=== PATIENT | male | born 1980 | race Hispanic/Latino ===

== ENCOUNTER 2022-08-18 23:44 | Inpatient (IN) | payer OTHER ==
[~2022-08-18] VITALS: Ht 165.1 cm; Wt 69.3 kg
[2022-08-18] MEDS ORDERED: LORAZEPAM 2 MG/ML 1 ML VIAL ONE (23:54)
[2022-08-19] MEDS ORDERED: LORAZEPAM 2 MG/ML 1 ML VIAL IVP ONE
[2022-08-19] MEDS ORDERED: LACTATED RINGERS 1000ML 1,000 ML IV ONE
[2022-08-19 00:12] LABS: APPEARANCE,URINE CLEAR (CLEAR); BILIRUBIN,URINE NEGATIVE (NEGATIVE); COLOR,URINE COLORLESS (YELLOW); GLUCOSE, URINE (UA) NEGATIVE (NEGATIVE); KETONES,URINE NEGATIVE (NEGATIVE); LEUKOCYTE ESTERASE ,URINE NEGATIVE Leu/uL (NEGATIVE); NITRATE,URINE NEGATIVE (NEGATIVE); OCCULT BLOOD,URINE NEGATIVE (NEGATIVE); PROTEIN,URINE NEGATIVE (NEGATIVE); UROBILINOGEN,URINE 0.2 mg/dL (0.2-1.0)
[2022-08-19] MEDS ORDERED: IOHEXOL 350 MG/ML 100ML INFUS..BTL IV ONE (00:13)
[2022-08-19 00:20] LABS: INR 0.94 (0.85-1.15); PROTHROMBIN TIME 10.3 SEC (9.6-11.6)
[2022-08-19 00:21] LABS: CREATININE 0.8 mg/dL (0.5-1.5); PARTIAL THROMBOPLASTIN TIME 28.6 SEC (26.3-35.5); POTASSIUM 3.7 mmol/L (3.5-5.1)
[2022-08-19 00:26] LABS: ALBUMIN 4.2 g/dL (3.5-5.0); TOTAL PROTEIN, SERUM 8.2 g/dL (6.0-8.3)
[2022-08-19 00:27] LABS: BASOPHILS % (AUTO) 0.6 % (0.0-5.0); EOSINOPHILS % (AUTO) 0.7 % (0.0-8.0); HEMATOCRIT 47.3 % (42-54); LYMPHOCYTES % (AUTO) 51.8 % (21.0-51.0); MEAN CORPUSCULAR HEMOGLOBIN 29.1 pg (27.0-33.0); MEAN CORPUSCULAR HGB CONC 33.8 g/dL (32.0-36.0); MONOCYTES % (AUTO) 6.7 % (3.0-13.0); PLATELET COUNT (AUTO) 408 K/uL (130-400); RED CELL DISTRIBUTION WIDTH 12.9 % (11.0-15.5); WHITE BLOOD COUNT (AUTO) 5.4 K/uL (4.8-10.8)
[2022-08-19] MEDS ORDERED: ONDANSETRON 4MG INJ ONE (00:37)
[2022-08-19] MEDS ORDERED: FLUMAZENIL 0.1MG/1ML 5ML VIAL IV ONE (01:39)
[2022-08-19] MEDS ORDERED: FLUMAZENIL 0.1MG/1ML 5ML VIAL IV SCH ×3 (02:00→03:30)
[2022-08-19] MEDS ORDERED: ONDANSETRON 4MG INJ IVP ONE (02:00)
[2022-08-19] MEDS ORDERED: 0.9%NACL 1000ML 1,000 ML IV ONE (03:30)
[2022-08-19] MEDS ORDERED: LORAZEPAM 2 MG/ML 1 ML VIAL IVP PRN (04:00)
[2022-08-19] MEDS ORDERED: PHARMACY COMMUNICATION MISC PRN (04:00)
[2022-08-19] MEDS ORDERED: ONDANSETRON 4MG INJ IV PRN (04:00)
[2022-08-19] MEDS ORDERED: MORPHINE 4 MG SYG IV PRN (04:00)
[2022-08-19] MEDS ORDERED: MAGNESIUM 2GM PREMIX 50ML 50 ML IV PRN (04:00)
[2022-08-19] MEDS ORDERED: CHLORDIAZEPOXIDE HCL 25 MG CAP PO SCH (04:00)
[2022-08-19] MEDS ORDERED: LIDOCAINE HCL-MPF 1% 2ML VIAL IV PRN (04:00)
[2022-08-19] MEDS ORDERED: ACETAMINOPHEN 325 MG TAB PO PRN ×2 (04:00)
[2022-08-19] MEDS ORDERED: MORPHINE 2 MG SYG IV PRN (04:00)
[2022-08-19] MEDS ORDERED: POTASSIUM CHLORIDE 20MEQ/100ML 100 ML IV PRN (04:00)
[2022-08-19] MEDS ORDERED: ZOSYN 3.375GM+NS 50ML 50 ML IVPB SCH (05:00)
[2022-08-19 09:00] VITALS: BP 142/109
[2022-08-19] MEDS ORDERED: M.V.I. IV [ADULT] 10 ML, FOLIC ACID 1 MG, THIAMINE HCL 100 MG in 0.9%NACL 1000ML 1,000 ML IV SCH (09:00)
[2022-08-19] MEDS ORDERED: FAMOTIDINE 20MG VIAL IV SCH (09:00)
[2022-08-19] MEDS ORDERED: ENOXAPARIN SODIUM 40 MG/0.4 ML SYRINGE SQ SCH (09:00)
== END 2022-08-19 11:40 | disposition left against medical advice (07) | DRG 605 ==
LOC: EDH 23:44 → EDHIP 23:45 → 4AH 08-19 09:00
PROVIDERS: ADMIT Surgery; ATTEND Surgery
DX: S00.83XA Contusion of other part of head, initial encounter (principal); F10.129 Alcohol abuse with intoxication, unspecified; M43.06 Spondylolysis, lumbar region; K40.90 Unilateral inguinal hernia, without obstruction or gangrene, not specified as recurrent; V89.2XXA Person injured in unspecified motor-vehicle accident, traffic, initial encounter; Y93.89 Activity, other specified; Y92.89 Other specified places as the place of occurrence of the external cause; Z82.49 Family history of ischemic heart disease and other diseases of the circulatory system; Y99.8 Other external cause status
CPT/HCPCS: 36415; 70450; 71045; 71260; 72125; 74177; 80053; 81003; 82550; 84484; 85025; 85610; 85730; 92610; 93005; G0378; J2060; J2405; J2543; J3411; J3490; J7030; Q9967